=== PATIENT | male | born 1990 | race Hispanic/Latino ===

== ENCOUNTER 2018-06-07 18:33 | Emergency (ER) | payer MEDICAID ==
[2018-06-07 18:39] VITALS: BP 154/93; PULSE 71; TEMP 97.4; O2SAT 100
[2018-06-07] MEDS ORDERED: Ciprofloxacin 0.3% OPTH SOLN OD STA (19:00)
[2018-06-07] MEDS ORDERED: Ciprofloxacin 0.3% OPTH SOLN ONE (19:08)
--- NOTE | 2018-06-07 19:08 | C.PDOC ---
History Of Present Illness 27-year-old male, presents to the emergency department with complaints of right eye pain, associated with discharge ongoing since last night. Patient denies any nausea/vomiting, fever, chills, visual changes, or any other associated symptoms. No other complaints at this time. Time Seen by Provider: 06/07/18 18:50 Chief Complaint (Nursing): Eye Problem History Per: Patient History/Exam Limitations: no limitations Current Symptoms Are (Timing): Still Present Severity: Moderate Past Medical History Reviewed: Historical Data, Nursing Documentation, Vital Signs Vital Signs: Last Vital Signs Temp 97.4 F L 06/07/18 18:36 Pulse 71 06/07/18 18:36 Resp 20 06/07/18 19:13 BP 154/93 H 06/07/18 18:36 Pulse Ox 100 06/07/18 19:09 - Medical History PMH: Back Problems Family History: States: No Known Family Hx - Social History Hx Tobacco Use: Yes (has not smoked for 3 days) Hx Alcohol Use: No Hx Substance Use: No - Immunization History Hx Tetanus Toxoid Vaccination: Yes Hx Influenza Vaccination: No Hx Pneumococcal Vaccination: (unk) Review Of Systems Constitutional: Negative for: Fever, Chills Eyes: Positive for: Redness. Negative for: Vision Change Gastrointestinal: Negative for: Vomiting Neurological: Negative for: Headache, Dizziness Physical Exam - Physical Exam Appears: Non-toxic, No Acute Distress Skin: Normal Color, Warm, Dry, No Rash Head: Atraumatic, Normacephalic Eye(s): right: Other (conjunctival injection to right eye no obvious discharge. No periorbital edema. No visual changes), left: Normal Inspection Nose: Normal Oral Mucosa: Moist Lips: Normal Appearing Neck: Normal ROM Chest: Symmetrical Respiratory: No Accessory Muscle Use Extremity: Normal ROM, No Deformity Neurological/Psych: Oriented x3, Normal Speech ED Course And Treatment O2 Sat by Pulse Oximetry: 100 (RA) Pulse Ox Interpretation: Normal Medical Decision Making Medical Decision Making: Pt treated with Cipro, will be discharged for outpatient f/u with specialist tomorrow Disposition - Disposition Referrals: Jony Uribe [Staff Provider] - Disposition: HOME/ ROUTINE Disposition Time: 19:02 Condition: STABLE Additional Instructions: Follow up with Night Warehouse Manager within 1-2 days. Return to ED if feel worse. Instructions: Conjunctivitis ([place]) Forms: [facility] (Palauan) - Clinical Impression Clinical Impression: Pain in eye - Scribe Statement The provider has reviewed the documentation as recorded by the Scribe (Ish Casarez) All medical record entries made by the Scribe were at my direction and personally dictated by me. I have reviewed the chart and agree that the record accurately reflects my personal performance of the history, physical exam, medical decision making, and the department course for this patient. I have also personally directed, reviewed, and agree with the discharge instructions and disposition.
[2018-06-07 19:13] VITALS: RESP 20
== END 2018-06-07 19:13 | disposition home or self-care (01) ==
LOC: C.ER 18:33
DX: H57.11 Ocular pain, right eye (principal)

== ENCOUNTER 2018-08-15 12:49 | Emergency (ER) | payer MEDICAID ==
[2018-08-15 13:08] VITALS: TEMP 98.5
[2018-08-15] MEDS ORDERED: Tdap Vaccine 0.5 ml Vial (10-64 yrs) IM ONE ×2 (13:41→13:48)
--- NOTE | 2018-08-15 14:34 | C.PDOC ---
History Of Present Illness 27 year old male presents to ED after stepping on nail with right foot at work yesterday. Patient states the nail went through his shoe and punctured plantar of his right foot. Patient reports pain to plantar of right foot and his tetanus is not up to date. Denies fever, chills, weakness, numbness. Time Seen by Provider: 08/15/18 13:29 Chief Complaint (Nursing): Lower Extremity Problem/Injury History Per: Patient History/Exam Limitations: no limitations Onset/Duration Of Symptoms: Days Current Symptoms Are (Timing): Still Present Past Medical History Reviewed: Historical Data, Nursing Documentation, Vital Signs Vital Signs: Last Vital Signs Temp 98.5 F 08/15/18 12:55 Pulse 89 08/15/18 12:55 Resp 16 08/15/18 12:55 BP 153/84 H 08/15/18 12:55 Pulse Ox 98 08/15/18 12:55 - Medical History PMH: Back Problems Surgical History: No Surg Hx Family History: States: No Known Family Hx - Social History Hx Tobacco Use: Yes (has not smoked for 3 days) Hx Alcohol Use: No Hx Substance Use: No - Immunization History Hx Tetanus Toxoid Vaccination: Yes Hx Influenza Vaccination: No Hx Pneumococcal Vaccination: (unk) Review Of Systems Except As Marked, All Systems Reviewed And Found Negative. Constitutional: Positive for: Other (Tetanus shot is not up ot date). Negative for: Fever, Chills Musculoskeletal: Positive for: Foot Pain (Stepped on nail that went through his shoe and punctured plantar of right foot.) Neurological: Negative for: Weakness, Numbness Physical Exam - Physical Exam Appears: Non-toxic, No Acute Distress Skin: Warm, Dry Head: Atraumatic, Normacephalic Eye(s): bilateral: Normal Inspection Chest: Symmetrical Cardiovascular: Rhythm Regular Extremity: No Swelling (No swelling, erythema, or drainage. ), Other (Puncture wound to plantar right foot.) Neurological/Psych: Oriented x3 ED Course And Treatment O2 Sat by Pulse Oximetry: 98 (RA) Pulse Ox Interpretation: Normal Progress Note: TD, cipro, x-ray right foot ordered and reviewed. No foerign bodies were found and patient was discharged home. Disposition - Disposition Disposition: HOME/ ROUTINE Disposition Time: 14:29 Condition: STABLE Additional Instructions: Follow up with PMD within 1-2 days. Return to ED if feel worse. Prescriptions: Ciprofloxacin/Ciprofloxa HCl [Ciprofloxacin] 500 mg PO Q12 #14 ter Instructions: Wound Care (DC) Forms: [facility] (Croatian) - Clinical Impression Clinical Impression: Puncture wound of plantar aspect of foot - PA / FARM SPECIALIST / Resident Statement MD/DO has reviewed & agrees with the documentation as recorded. - Scribe Statement The provider has reviewed the documentation as recorded by the Scribe Erick Sukhdeep All medical record entries made by the Kaylaibvarags were at my direction and personally dictated by me. I have reviewed the chart and agree that the record accurately reflects my personal performance of the history, physical exam, medical decision making, and the department course for this patient. I have also personally directed, reviewed, and agree with the discharge instructions and disposition.
[2018-08-15 14:50] VITALS: BP 127/78; PULSE 79; RESP 18
[2018-08-15 15:18] VITALS: O2SAT 98
--- NOTE | 2018-08-15 15:48 | RAD ---
Date of service: 08/15/2018 PROCEDURE: Right Foot Radiographs. HISTORY: Stepped on nail yesterday COMPARISON: None. FINDINGS: Note that a pen marker indicates the location of injury (which localizes the plantar soft tissues at the level of the MTP joint BONES: No acute displaced fracture nor dislocation. No evidence of cortical destructive changes. There is mild hallux valgus deformity of the 1st MTP joint and more significant valgus deformity of the 1st DIP joint. The tiny radiopaque density is seen within the medial soft tissues possibly within or along the nail bed distal aspect 1st toe.. No evidence of foreign bodies are seen JOINTS: Normal. SOFT TISSUES: Normal. OTHER FINDINGS: None. IMPRESSION: No acute displaced fracture nor dislocation. No evidence of cortical destructive changes. There is mild hallux valgus deformity of the 1st MTP joint and more significant valgus deformity of the 1st DIP joint. The tiny radiopaque density is seen within the medial soft tissues possibly within or along the nail bed distal aspect 1st toe.. No evidence of foreign bodies are seen
== END 2018-08-15 14:50 | disposition home or self-care (01) ==
LOC: C.ER 12:49
DX: S91.331A Puncture wound without foreign body, right foot, initial encounter (principal); W45.0XXA Nail entering through skin, initial encounter; Y92.89 Other specified places as the place of occurrence of the external cause; Y99.0 Civilian activity done for income or pay